=== PATIENT | male | born 1965 | race Caucasian/White ===

== ENCOUNTER 2022-06-10 15:07 | Emergency (ER) | payer MEDICAID, SELFPAY ==
[2022-06-10] VITALS (19 sets, daily range): BP systolic 126–138; BP diastolic 72–83; PULSE 72–84; RESP 0–17; TEMP 36.6; O2SAT 95–100; BMI 20.7
--- NOTE | 2022-06-10 15:21 | ECG_ITS ---
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 Measurements Intervals [place] Rate: 84 P: 76 AR: 124 QRS: 82 QRSD: 101 T: 30 QT: 381 QTc: 453 Interpretive Statements SINUS RHYTHM NONSPECIFIC T-WAVE ABNORMALITY No previous ECG available for comparison Electronically Signed On 06-10-2022 17:26:51 TIRE BUFFER by Wilfredo Blake M.D. [id number]
--- NOTE | 2022-06-10 15:22 | XRR_ITS ---
PROCEDURE INFORMATION: Exam: XR Chest Exam date and time: 06/10/2022 3:39 PM Age: 56 years old Clinical indication: Pain; Angina pectoris; Additional info: Chest pain TECHNIQUE: Imaging protocol: Radiologic exam of the chest. Views: 1 view. COMPARISON: No relevant prior studies available. FINDINGS: Lungs: Unremarkable. No consolidation. Pleural spaces: Unremarkable. No pleural effusion. No pneumothorax. Heart/Mediastinum: Cardiomegaly. Bones/joints: Sternotomy wires. XR/XR chest 1V portable [id number] IMPRESSION: Cardiomegaly, lungs are clear.
--- NOTE | 2022-06-10 15:57 | ED_ITS ---
HPI - Chest Pain General: Chief Complaint: Chest Pain Stated Complaint: chest pain Time Seen by Provider: 06/10/22 15:42 History of Present Illness: This 56-year-old male with a past history of coronary artery disease, CABG and [place] was brought in by law enforcement with chest pain that woke him up in the middle of the night. Patient cannot remember exactly what time the pain woke him up at. However, pain has been constant since then. He describes it as both dull and hurting . There is associated dizziness and some shortness of breath on exertion. He currently rates his pain at 4 out of 10. Patient was arrested in [place] on 05/22/2022 and transferred down here because there is a warrant for his arrest here. He has not been taking his home medications since then. He appears clinically stable and he is not in appreciable distress. Review of Systems Const: Denies: chills, body aches or change in appetite Card: Reports: chest pain, lightheadedness and dyspnea on exertion : Denies: dysuria Musc: Denies: neck pain or back pain Neuro: Denies: headache(s) or weakness in extremities Psych: Denies: depression All/Imm: Denies: urticaria, tongue swelling or facial swelling Physical Exam Const: COMMON NORMALS: no acute distress, patient oriented x3, no limitations and alert Chest: OTHER: Well-healed mid sternotomy scar from previous CABG. Mild tenderness on palpation of the left anterior chest wall. No redness, swelling or sign of trauma/infection. Resp: COMMON NORMALS: normal respiratory effort, No retractions, No use of accessory muscles and clear to auscultation bilaterally AUSCULTATION: clear to auscultation bilaterally Cardio: COMMON NORMALS: regular rate, regular rhythm and No murmurs present (Cardio) RATE: regular rate RHYTHM: regular rhythm GI: COMMON NORMALS: Normal to inspection, nondistended, normoactive bowel sounds present and non-tender Extremity: GENERAL: Yes normal exam except as noted Neuro: COMMON NORMALS: patient oriented x3 and no focal motor deficits SENSORIUM/ORIENTATION: Yes alert Course Vital Signs: Vital signs: Vital Signs Temperature 97.8 F 06/10/22 15:10 Pulse Rate 77 06/10/22 20:15 Respiratory Rate 0 L 06/10/22 20:15 Blood Pressure 136/83 06/10/22 20:15 Pulse Oximetry 95 06/10/22 20:15 Oxygen Delivery Me thod 06/10/22 18:07 MDM - Chest Pain Medical Decision Making Medical decision making: Patient presents with chest pain that woke him up in the middle of the night. He has not been taking his usual home medications since he was arrested on 05/22/2022. He is clinically stable with normal vital signs. EKG is negative for any acute ischemic changes. Initial troponin is 9 and repeat troponin 2 hours later is 8.63 with a delta of -0.37. At this time, there is no indication that patient is having an acute coronary syndrome. We were able to verify some of the medications he takes and I gave him prescriptions for them. He was advised to follow-up with a primary care physician in the next 2 to 3 days for reevaluation. Reasons to return were discussed. Lab Data 06/10/22 16:10 06/10/22 16:10 Radiology Impressions Chest X-Ray 06/10/22 15:22 IMPRESSION: Cardiomegaly, lungs are clear. Laboratory Results WBC 10.7 10^3/uL (4.0-10.0) H 06/10/22 16:10 RBC 4.72 10^6/uL (4.1-5.3) 06/10/22 16:10 Hgb 14.3 g/dL (11.7-16.6) 06/10/22 16:10 Hct 42.9 % (42.0-52.0) 06/10/22 16:10 MCV 90.9 fl (80-94) 06/10/22 16:10 MCH 30.3 pg (28.0-34.0) 06/10/22 16:10 MCHC 33.3 g/dL (30.0-36.0) 06/10/22 16:10 RDW 12.0 % (12.1-15.1) L 06/10/22 16:10 Plt Count 272 10^3/cmm (130-400) 06/10/22 16:10 MPV 10.3 fL (7.4-10.4) 06/10/22 16:10 Neut % (Auto) 63.3 % 06/10/22 16:10 Lymph % (Auto) 26.6 % 06/10/22 16:10 [place] % (Auto) 8.1 % 06/10/22 16:10 Eos % (Auto) 1.1 % 06/10/22 16:10 Baso % (Auto) 0.4 % 06/10/22 16:10 Neut # (Auto) 6.76 10^3/uL (1.8-7.7) 06/10/22 16:10 Lymph # (Auto) 2.8 10^3/uL (0.8-4.8) 06/10/22 16:10 [place] # (Auto) 0.9 10^3/uL (0.2-0.9) 06/10/22 16:10 Eos # (Auto) 0.1 10^3/uL (0.0-0.8) 06/10/22 16:10 Baso # (Auto) 0.0 10^3/uL (0.0-0.1) 06/10/22 16:10 Nucleated RBC % (auto) 0 % 06/10/22 16:10 Nucleated RBCs # 0.0 /100WBC 06/10/22 16:10 Sodium 132 mmol/L (136-145) L 06/10/22 16:10 Potassium 4.1 mmol/L (3.5-5.1) 06/10/22 16:10 Chloride 95 mmol/L (98-107) L 06/10/22 16:10 Carbon Dioxide 27 mmol/L (22-29) 06/10/22 16:10 Anion Gap 14.1 (5-19) 06/10/22 16:10 BUN 14 mg/dL (6-20) 06/10/22 16:10 Creatinine 0.6 mg/dL (0.7-1.2) L 06/10/22 16:10 GFR Calculation 139.4 mL/min (90-130) H 06/10/22 16:10 Glucose 198 mg/dL (65-115) H 06/10/22 16:10 Calculated Osmolality 280 mOsm/kg (285-295) L 06/10/22 16:10 Calcium 9.2 mg/dL (8.5-10.5) 06/10/22 16:10 Total Bilirubin 0.2 mg/dL (0.15-1.2) 06/10/22 16:10 AST 13 U/L (0-40) 06/10/22 16:10 ALT 23 U/L (0-41) 06/10/22 16:10 Alkaline Phosphatase 61 U/L (40-130) 06/10/22 16:10 Troponin T Baseline 9 ng/L (0-15) 06/10/22 16:10 Troponin T 120 Minute 8.63 ng/L (0-15) 06/10/22 18:59 Delta Troponin T -0.37 ABS# (0-10) L 06/10/22 18:59 Total Protein 7.3 g/dL (6.6-8.7) 06/10/22 16:10 Albumin 3.5 g/dL (3.5-5.2) 06/10/22 16:10 Globulin 3.8 g/dL (1.3-4.6) 06/10/22 16:10 Discharge Plan Discharge Patient Disposition: Home Clinical Impression: Atypical chest pain Condition: Stable Prescriptions: Continued atorvastatin 80 mg tablet 80 mg PO DAILY Qty: 30 0RF clopidogrel 75 mg tablet 75 mg PO DAILY Qty: 30 0RF aspirin 81 mg Tablet,Chewable 81 mg PO DAILY Qty: 30 0RF famotidine 10 mg Tablet 10 mg PO DAILY Qty: 30 0RF topiramate 25 mg tablet 25 mg PO BID Qty: 30 0RF metoprolol tartrate 50 mg tablet 25 mg PO BID Qty: 30 0RF ezetimibe 10 mg tablet 10 mg PO DAILY Qty: 30 0RF empagliflozin 25 mg Tablet 12.5 mg PO DAILY Qty: 30 0RF No Action estradiol 0.1 mg/24 hr patch semiweekly 0.1 mg transdermal Q7D Acidophilus Capsule 10,000 mmu cells PO DAILY Discharge Orders: Discharge ED (Routine); Ordered 06/10/22 Ordered By: Edwina Carlson Discharge Diet: Usual diet Discharge Activity: Resume usual activity Patient Instructions: Opioid Safety, Pain Management Activity Restrictions/Additional Instructions: Restart your usual home medications. Follow-up with a primary care physician in 2 to 3 days for reevaluation. Return with new or worsening symptoms. Coding Level of Care Code ED Industrial Engineering Professor for Katie Aden
[2022-06-10] MEDS: aspirin 81 mg Chew Tablet 324 MG PO (16:03)
[2022-06-10 16:25] LABS: Basophils % 0.4 %; Eosinophils # 0.1 10^3/uL (0.0-0.8); Eosinophils % 1.1 %; Hematocrit 42.9 % (42.0-52.0); Hemoglobin 14.3 g/dL (11.7-16.6); Lymphocytes # 2.8 10^3/uL (0.8-4.8); Lymphocytes % 26.6 %; Mean Corpuscular HGB Conc 33.3 g/dL (30.0-36.0); Mean Corpuscular Hemoglobin 30.3 pg (28.0-34.0); Mean Corpuscular Volume 90.9 fl (80-94); Mean Platelet Volume 10.3 fL (7.4-10.4); Monocytes # 0.9 10^3/uL (0.2-0.9); Monocytes % 8.1 %; Neutrophils # 6.76 10^3/uL (1.8-7.7); Neutrophils % 63.3 %; Nucleated Red Blood Cells % 0 %; Platelet Count 272 10^3/cmm (130-400); Red Blood Count 4.72 10^6/uL (4.1-5.3); White Blood Count 10.7 10^3/uL (4.0-10.0)
[2022-06-10 16:53] LABS: Troponin(5th) Baseline 9 ng/L (0-15)
[2022-06-10 16:55] LABS: Alanine Aminotransferase 23 U/L (0-41); Albumin Level 3.5 g/dL (3.5-5.2); Alkaline Phosphatase 61 U/L (40-130); Anion Gap 14.1 (5-19); Aspartate Amino Transferase 13 U/L (0-40); Blood Urea Nitrogen 14 mg/dL (6-20); Calcium 9.2 mg/dL (8.5-10.5); Carbon Dioxide 27 mmol/L (22-29); Chloride 95 mmol/L (98-107); Globulin 3.8 g/dL (1.3-4.6); Glomerular Filtration Rate 139.4 mL/min (90-130); Glucose 198 mg/dL (65-115); Osmolality Calculated 280 mOsm/kg (285-295); Potassium 4.1 mmol/L (3.5-5.1); Sodium 132 mmol/L (136-145); Total Bilirubin 0.2 mg/dL (0.15-1.2); Total Protein 7.3 g/dL (6.6-8.7)
[2022-06-10 19:30] LABS: Troponin 5 2HR 8.63 ng/L (0-15)
[2022-06-10 19:34] LABS: Troponin 5 2HR Delta -0.37 ABS# (0-10)
--- NOTE | 2022-06-10 21:23 | ECG_ITS ---
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 Measurements Intervals [place] Rate: 87 P: 72 GA: 128 QRS: 79 QRSD: 104 T: 11 QT: 293 QTc: 353 Interpretive Statements SINUS RHYTHM NONSPECIFIC T-WAVE ABNORMALITY Compared to ECG 06/10/2022 15:21:13 No significant changes Electronically Signed On 06-10-2022 18:07:57 DIRECTOR OF PRIMARY by Wilfredo Blake M.D. [id number]
== END 2022-06-10 20:44 | disposition home or self-care (01) ==
PROVIDERS: Physician Assistant; Emergency Provider Family Medicine
DX: R07.89 Other chest pain (principal); Z79.82 Long term (current) use of aspirin; Z79.02 Long term (current) use of antithrombotics/antiplatelets
CPT/HCPCS: 36415; 71045; 80053; 84484; 85025; 93005; 99285